=== PATIENT | female | born 1930 | race Caucasian/White ===

== ENCOUNTER 2016-09-15 17:56 | Inpatient (IN) | payer MEDICARE, BC ==
[~2016-09-15] VITALS: Ht 162.6 cm; Wt 83.9 kg
--- NOTE | 2016-09-15 18:00 | NUR ---
PATIENT BIB [facility] C/O SOB SINCE YESTERDAY. PATIENT WAS SEEN AT [facility] YESTERDAY AND WAS GIVEN BACTRIM. PATIENT CONTINUES TO HAVE SOB, PLACED ON 2L O2 VIA NC. SATURATION IS 97%. SAFETY AND COMFORT MEASURES IN PLACE. AWAITING MD ORDERS.
[2016-09-15] MEDS ORDERED: ONDA8TAB6 PO (18:07)
[2016-09-15] MEDS ORDERED: FELO10TA3 PO (18:07)
[2016-09-15] MEDS ORDERED: ALPR0.25 PO (18:07)
[2016-09-15] MEDS ORDERED: GUAI-960 PO (18:07)
[2016-09-15] MEDS ORDERED: SULF1TAB48 PO (18:07)
[2016-09-15] MEDS ORDERED: ALBUTEROL FS 2.5 MG/3 ML VIAL.NEB NEB ONE (18:30)
[2016-09-15] MEDS ORDERED: IV NS 0.9% 1,000 ML BAG IV ONE (18:30)
[2016-09-15] MEDS ORDERED: VANCOMYCIN 1 GM in IV D5W 250 ML IV ONE (18:30)
[2016-09-15 18:33] LABS: ABG BASE EXCESS 3.5 mmol/L; ABG OXYGEN SATURATION 97.4 % (92.0-98.5); ABG PCO2 28.3 mmHg (35.0-45.0); ABG PH 7.559 (7.350-7.450); AaDO2 73.2 mmHg; COHb 0.6 % (0.5-1.5); MetHb 0.5 % (0.0-1.5); O2Hb 96.3 % (94.0-97.0); SITE, ABG Right Radial; VENT MODE, BG NASAL CANNULA
[2016-09-15] MEDS ORDERED: ALBUTEROL FS 2.5 MG/3 ML VIAL.NEB ONE (18:37)
[2016-09-15] MEDS: PIPERACILLIN /TAZOBACTAM 3.375 G in IV D5W 50 ML IV ONE (19:10)
[2016-09-15 19:16] LABS: EOSINOPHILS % (AUTO) 0.6 % (0.0-6.0); HEMATOCRIT 42 % (33-45); HEMOGLOBIN 13.7 g/dL (11.5-14.8); LYMPHOCYTES # (AUTO) 0.5 /CMM (0.8-4.8); LYMPHOCYTES % (AUTO) 28.2 % (20.0-44.0); MEAN CORPUSCULAR HEMOGLOBIN 31 PG (26.0-33.0); MEAN CORPUSCULAR HGB CONC 33 g/dl (31.0-36.0); MEAN CORPUSCULAR VOLUME 96 fL (82-100); MONOCYTES % (AUTO) 1.8 % (2.0-12.0); NEUTROPHILS # (AUTO) 1.3 /CMM (1.8-8.9); NEUTROPHILS % (AUTO) 68.4 % (43.0-81.0); PLATELET COUNT (AUTO) 128 /CMM (150-450); RED BLOOD CELL COUNT(AUTO) 4.39 MIL/uL (4.0-5.2)
--- NOTE | 2016-09-15 19:23 | NUR ---
REPORT GIVEN TO SONA BINGHAM FOR IJEOMA.
--- NOTE | 2016-09-15 19:25 | NUR ---
PT REPORT RECIVED FROM AKBAR RN, PT IN BED ON MONITOR, VSS, WILL CONTINUE TO MONITOR
[2016-09-15 19:26] LABS: CALCIUM, SERUM 7.9 mg/dL (8.5-10.1); CARBON DIOXIDE 26 mmol/L (21-32); CHLORIDE 100 mmol/L (98-107); CREATININE 1.5 mg/dL (0.6-1.3); GLUCOSE 134 mg/dL (74-106); POTASSIUM 3.2 mmol/L (3.5-5.1); SODIUM SERUM 133 mmol/L (136-145); UREA NITROGEN, BLOOD 16 mg/dL (7-18)
[2016-09-15 19:29] LABS: INR 1.12 (0.87-1.13); PROTHROMBIN TIME 11.8 SECS (9.5-12.7); WHITE BLOOD COUNT (AUTO) 1.8 K/uL (4.3-11.0)
[2016-09-15 19:32] LABS: ALANINE AMINOTRANSFERASE 73 U/L (12-78); ALBUMIN 2.4 g/dL (3.4-5.0); ALKALINE PHOSPHATASE 85 U/L (46-116); ASPARTATE AMINOTRANSFERASE 47 U/L (15-37); BILIRUBIN,DIRECT 0.3 mg/dL (0.0-0.2); BILIRUBIN,TOTAL 1.3 mg/dL (0.2-1.0)
[2016-09-15] MEDS ORDERED: POTASSIUM CHLORIDE 20 MEQ TAB.PRT.SR PO ONE ×2 (19:56→20:00)
[2016-09-15 20:08] LABS: BAND % (MANUAL) 4 % (0.0-5.0); EOSINOPHILS % (MANUAL) 1 % (0-4); LYMPHOCYTES % (MANUAL) 20 % (16-48); NEUTROPHILS % (MANUAL) 75 (42-76)
[2016-09-15 20:40] VITALS: BP 112/58
--- NOTE | 2016-09-15 21:00 | NUR ---
RN NOTE; ADMITTED A 86 Y/O F, A, OX3. W/ ANXIETY EPISODES. BREATHING EVENLY. ON O2 AT 2LPM VIA NC KAMRON WELL. HOB ELEVATED TO PREVENT SOB. AYUSH WARM AND DRY. HOWEVER REFUSED A COMPREHENSIVE BODY CHECK AND PICTURE TAKING ON SKIN ISSUES. CARE GIVERS AT THE BED SIDE, MOST MEDICAL INFO WERE OBTAINED FROM THE CAREGIVERS PT UNWILLING TO ANSWER. PT WAS PLACED ON BUSINESS CONSULTANT READING SR RATING 80s. W/ ONGOING IVF BOLUS RUNNING FROM THE ER. IV SITE INTACT . PT DENIED ANY PAIN RO DISCOMFORT AT THIS TIME. NEEDS ATTENDED. BED LOW LOCKED. CALL LIGHT WITHIN REACH. WILL CONT TO MONITOR AND WILL F/U MD'S ORDERS.
[2016-09-16] VITALS: BP 123/64
--- NOTE | 2016-09-16 00:39 | NUR ---
SEEN AND EXAMINED BY DR. VOSS AT THE BED SIDE. PER MD, SHE WILL INPUT THE ADMITTING ORDERS.
[2016-09-16] MEDS: ALBUTEROL FS 2.5 MG/0.5 ML VIAL.NEB NEB SCH ×5 (01:30→15:27)
[2016-09-16] MEDS: methylPREDNISolone SOD SUCC 125 MG/2ML VIAL IV SCH ×3 (01:45→13:57)
--- NOTE | 2016-09-16 02:21 | NUR ---
CALLED RT REGARDING ABG. LEE ANN WILL BE HERE TO DRAW BLOOD.WILL F/U
[2016-09-16 03:14] LABS: ABG BASE EXCESS -3.1 mmol/L; ABG OXYGEN SATURATION 97.2 % (92.0-98.5); ABG PCO2 27.4 mmHg (35.0-45.0); ABG PH 7.464 (7.350-7.450); ABG PO2 98.1 mmHg (75.0-100.0); COHb 0.6 % (0.5-1.5); MetHb 0.8 % (0.0-1.5); O2Hb 95.8 % (94.0-97.0); SITE, ABG Right Radial
[2016-09-16] MEDS ORDERED: IV NS 0.9% 1,000 ML IV PRN (03:30)
--- NOTE | 2016-09-16 06:54 | NUR ---
RN NOTE; PT IN BED AWAKE AND ALERT. REPORTED FEELING MUCH BETTER. BREATHING EVENLY. DENIED SOB. NAD. SUPPLEMENTAL O2 AT 2LPM VIA NC KAMRON WELL.. ON ONGOING IVF HYDRATION. ASSISTED W/ ADLS AND BED SIDE COMMODE. DENIED ANY PAIN OR DISCOMFORT. SR ON TELE MONITOR. CALL LIGHT WITHIN REACH, WILL CONT TO MONITOR AND WILL ENDORSE TO AM SHIFT FOR IJEOMA.
[2016-09-16 07:20] VITALS: BP 116/58
--- NOTE | 2016-09-16 07:30 | NUR ---
RN NOTES RECEIVED PATIENT IN BED SLEEPING, AROUSES EASILY. ALERT AND ORIENTED X 3. RESPIRATIONS EVEN AND UNLABORED. NO ACUTE DISTRESS, NO SOB NOTED. IV SITE INTACT AND PATENT. BED IN LOWEST POSITION, SIDERAILS UP X2. CALL LIGHT WITHIN REACH. WILL CONTINUE TO MONITOR ACCORDINGLY.
[2016-09-16 08:00] VITALS: BP 97/48
[2016-09-16] MEDS ORDERED: GUAIFENESIN/CODEINE 10 ML UDC PO PRN (09:00)
[2016-09-16] MEDS ORDERED: FELODIPINE 2.5 MG TAB.SR.24H PO SCH (09:00)
[2016-09-16] MEDS ORDERED: ALPRAZOLAM 0.25 MG TABLET PO SCH (09:00)
--- NOTE | 2016-09-16 09:20 | NUR ---
SOLU-MEDROL WAS WASTED, TIP WAS BROKEN, WITNESS BY SONA CRYSTAL.
[2016-09-16 10:00] VITALS: BP 97/48
[2016-09-16 12:00] VITALS: BP 101/58
[2016-09-16 16:00] VITALS: BP 120/65
[2016-09-16] MEDS ORDERED: CEFTRIAXONE 1 G in IV D5W 50 ML IV SCH (16:00)
[2016-09-16] MEDS ORDERED: LACTOSE-FREE FOOD 237 ML LIQUID PO SCH (17:00)
--- NOTE | 2016-09-16 17:30 | NUR ---
SPRAY DRIER OPERATOR HELPER NOTES PATIENT SAYING "I WANTED TO GO HOME! ILL IN HERE!", MD AWARE, NO DISCHARGE ORDER WAS MADE. EDUCATE PATIENT BUT STILL INSISTED ON LEAVING. PER DR BAKER, PATIENT CAN GO AGAINST MEDICAL ADVICE. PATIENT LEFT WITH CAREGIVER AGAINST MEDICAL ADVICE.
== END 2016-09-16 18:00 | disposition left against medical advice (07) | DRG 871 ==
LOC: ER 17:57 → TELE 20:33
PROVIDERS: ADMIT Internal Medicine; ATTEND Internal Medicine
DX: A41.9 Sepsis, unspecified organism (principal); N17.0 Acute kidney failure with tubular necrosis; J15.6 Pneumonia due to other Gram-negative bacteria; J96.01 Acute respiratory failure with hypoxia; R53.2 Functional quadriplegia; D61.810 Antineoplastic chemotherapy induced pancytopenia; J15.9 Unspecified bacterial pneumonia; E44.0 Moderate protein-calorie malnutrition; E22.2 Syndrome of inappropriate secretion of antidiuretic hormone; J44.0 Chronic obstructive pulmonary disease with (acute) lower respiratory infection; J44.1 Chronic obstructive pulmonary disease with (acute) exacerbation; E66.9 Obesity, unspecified; E87.6 Hypokalemia; N18.9 Chronic kidney disease, unspecified; Z85.3 Personal history of malignant neoplasm of breast; Z87.891 Personal history of nicotine dependence; I12.9 Hypertensive chronic kidney disease with stage 1 through stage 4 chronic kidney disease, or unspecified chronic kidney disease; K80.20 Calculus of gallbladder without cholecystitis without obstruction; C50.919 Malignant neoplasm of unspecified site of unspecified female breast; Z79.899 Other long term (current) drug therapy; R65.20 Severe sepsis without septic shock; Z68.31 Body mass index [BMI] 31.0-31.9, adult
CPT/HCPCS: 36415; 36600; 71010-TC; 80048-TC; 80076-TC; 83605-TC; 84484-TC; 85025-TC; 85730-TC; 87040-TC; 87081-TC; A4606; J0696; J2543; J2930; J3370; J7030; J7060; Z7610

== ENCOUNTER 2017-06-06 16:40 | Inpatient (IN) | payer MEDICARE, BC ==
[~2017-06-06] VITALS: Ht 162.6 cm; Wt 64.9 kg
[~2017-06-06 16:40] MED LIST: ALPR0.25 PO; FELO10TA3 PO; GUAI-960 PO; ONDA8TAB6 PO; SULF1TAB48 PO
--- NOTE | 2017-06-06 16:45 | NUR ---
HEENA FROM HOME ACCOMPANIED BY CAREGIVER DT SOB STARTED THIS AM. PATIENT IS AWAKE AND ALERT, NOT IN DISTRESS, SATING WELL ON ROOM AIR, PATIENT DENIES CHEST PAIN. SKIN IS WARM TO TOUCH AND NON DIAPHORETIC. PT IS AFEBRILE. VSS
--- NOTE | 2017-06-06 16:54 | NUR ---
EKG IN PROGRESS
[2017-06-06 17:12] LABS: BASOPHILS % (AUTO) 0.6 % (0.0-2.0); EOSINOPHILS % (AUTO) 1.6 % (0.0-6.0); HEMATOCRIT 37 % (33-45); HEMOGLOBIN 12.6 g/dL (11.5-14.8); LYMPHOCYTES # (AUTO) 0.7 /CMM (0.8-4.8); LYMPHOCYTES % (AUTO) 15.5 % (20.0-44.0); MEAN CORPUSCULAR HGB CONC 34 g/dl (31.0-36.0); MEAN CORPUSCULAR VOLUME 97 fL (82-100); MONOCYTES # (AUTO) 0.3 /CMM (0.1-1.30); MONOCYTES % (AUTO) 5.6 % (2.0-12.0); NEUTROPHILS # (AUTO) 3.5 /CMM (1.8-8.9); NEUTROPHILS % (AUTO) 76.7 % (43.0-81.0); PLATELET COUNT (AUTO) 315 /CMM (150-450); RED BLOOD CELL COUNT(AUTO) 3.84 MIL/uL (4.0-5.2); WHITE BLOOD COUNT (AUTO) 4.5 K/uL (4.3-11.0)
[2017-06-06 17:27] LABS: CALCIUM, SERUM 8.6 mg/dL (8.5-10.1); CARBON DIOXIDE 23 mmol/L (21-32); CHLORIDE 106 mmol/L (98-107); CREATININE 0.8 mg/dL (0.6-1.3); GLUCOSE 166 mg/dL (74-106); POTASSIUM 2.9 mmol/L (3.5-5.1); SODIUM SERUM 143 mmol/L (136-145); UREA NITROGEN, BLOOD 11 mg/dL (7-18)
[2017-06-06 17:32] LABS: ALANINE AMINOTRANSFERASE 30 U/L (12-78); ALBUMIN 2.5 g/dL (3.4-5.0); ALKALINE PHOSPHATASE 44 U/L (46-116); ASPARTATE AMINOTRANSFERASE 27 U/L (15-37); BILIRUBIN,DIRECT 0.1 mg/dL (0.0-0.2); BILIRUBIN,TOTAL 0.5 mg/dL (0.2-1.0); TOTAL PROTEIN, SERUM 6.3 g/dL (6.4-8.2)
[2017-06-06 17:35] LABS: INR 0.96 (0.87-1.13)
[2017-06-06] MEDS ORDERED: CEFTRIAXONE 1GM BAG (ER ONLY) 50 ML IV ONE ×2 (17:48→18:00)
[2017-06-06] MEDS ORDERED: POTASSIUM CHLORIDE 20 MEQ TAB.PRT.SR PO ONE ×3 (17:48→23:00)
[2017-06-06 17:49] LABS: TROPONIN I < 0.017 ng/mL (0.00-0.056)
[2017-06-06] MEDS ORDERED: AZITHROMYCIN 500 MG in IV D5W 250 ML IV ONE (18:00)
--- NOTE | 2017-06-06 18:01 | NUR ---
CALLED PHARMACY FOR VEE
--- NOTE | 2017-06-06 18:03 | NUR ---
PAGED EPIC FOR PANEL
[2017-06-06] MEDS ORDERED: AZITHROMYCIN 500 MG VIAL ONE (18:09)
--- NOTE | 2017-06-06 18:12 | NUR ---
PAGED OF [facility] FOR TRANSFER TO [facility] PER PATIENT FAMILY'S REQUEST - DR. HUBBARD SPOKE WITH DR. DURON - AWAITING TRANSFER DETAILS
[2017-06-06] MEDS ORDERED: IV NS 0.9% 1,000 ML BAG IV ONE (19:00)
--- NOTE | 2017-06-06 19:54 | NUR ---
CALLED DR. DURON FOR TRANSFER DETAILS - REFERRED TO NURSE AT [facility] BY DR. DURON FOR DETAILS
--- NOTE | 2017-06-06 19:59 | NUR ---
REFERRED TO [facility] FOR DETAILS
--- NOTE | 2017-06-06 20:15 | NUR ---
CALLED [facility] TRANSF[facility] [place] FOR TRANSFER UPDATE, NO TRANSFER INFORMATION AVAILABLE. FAMILY NOTIFIED OF UPDATE - PER FAMILY, WOULD LIKE TO BE ADMITTED TO [facility]. DR. GARVEY NOTIFIED
--- NOTE | 2017-06-06 20:15 | NUR ---
SPOKE WITH [facility]ERRY OF [facility] AND WAS REFERRED TO [facility] () FOR TRANSFER SET UP AND DETAILS
--- NOTE | 2017-06-06 20:18 | NUR ---
CALLED NURSE SUP FOR TELE BED
--- NOTE | 2017-06-06 22:15 | NUR ---
REPORT GIVEN TO MUSTAPHAI. ROOM 327-2
[2017-06-06 22:20] VITALS: BP 123/78
--- NOTE | 2017-06-06 22:20 | NUR ---
RN NOTES RECEIVED PATIENT FROM ER FOR DX SEPSIS. AO X 3, ABLE TO MAKE NEEDS KNOWN. NO ACUTE DISTRESS NOTED. DENIES ANY PAIN AT THIS TIME. TELE READING SINUS WITH FIRST DEGREE AV BLOCK HR 76. IV SITE PATENT, INTACT; FLUSHED. SKIN ASSESSMENT DONE. SAFETY REMINDERS GIVEN. ORIENTED TO UNIT AND ROOM. ON LOW BED WITH BILATERAL UPPER SIDE RAILS UP. CALL MENDOZA WITHIN EASY REACH. WILL CONTINUE TO MONITOR. 2 CAREGIVERS AT BEDSIDE.
[2017-06-06] MEDS ORDERED: INSULIN REGULAR, HUMAN 100 UNIT/ML 3 ML VIAL SQ PRN (23:00)
[2017-06-06] MEDS ORDERED: ACETAMINOPHEN 325 MG TABLET PO PRN (23:00)
[2017-06-06] MEDS ORDERED: IV NS 0.9% 1,000 ML BAG IV SCH (23:00)
[2017-06-06] MEDS ORDERED: MORPHINE SULFATE INJ 2 MG/ML DISP.SYRIN IV PRN (23:00)
[2017-06-06] MEDS ORDERED: DEXTROSE 50%-WATER 50 ML DISP.SYRIN IV PRN (23:00)
[2017-06-06] MEDS ORDERED: ONDANSETRON HCL/PF 4 MG/2 ML VIAL IVP PRN (23:00)
[2017-06-06 23:10] LABS: PHOSPHORUS 1.6 mg/dL (2.5-4.9)
[2017-06-06] MEDS ORDERED: VANCOMYCIN 1 GM VIAL ONE (23:31)
[2017-06-06] MEDS ORDERED: PIPERACILLIN /TAZOBACTAM 3.375 G VIAL IV ONE (23:32)
[2017-06-06] MEDS: PIPERACILLIN /TAZOBACTAM 3.375 G in IV D5W 50 ML IV SCH (23:57)
[2017-06-06] MEDS ORDERED: VANCOMYCIN 1 GM in IV D5W 250 ML IV SCH (23:59)
[2017-06-07] VITALS: BP 139/92
[2017-06-07] MEDS ORDERED: VANCOMYCIN 1 GM in IV D5W 250 ML IV SCH (00:01)
[2017-06-07] MEDS ORDERED: IV NS 0.9% 1,000 ML IV PRN (00:30)
[2017-06-07 04:00] VITALS: BP 125/61
[2017-06-07] MEDS ORDERED: PIPERACILLIN /TAZOBACTAM 3.375 G VIAL IV ONE (05:52)
[2017-06-07] MEDS: BLOOD SUGAR DIAGNOSTIC 1 EACH STRIP IN SCH ×4 (06:31→21:11)
[2017-06-07] MEDS: PIPERACILLIN /TAZOBACTAM 3.375 G in IV D5W 50 ML IV SCH ×3 (06:31→17:21)
[2017-06-07 06:35] LABS: EOSINOPHILS % (AUTO) 0.5 % (0.0-6.0); HEMATOCRIT 35 % (33-45); HEMOGLOBIN 11.7 g/dL (11.5-14.8); LYMPHOCYTES # (AUTO) 0.6 /CMM (0.8-4.8); LYMPHOCYTES % (AUTO) 11.9 % (20.0-44.0); MEAN CORPUSCULAR HGB CONC 33 g/dl (31.0-36.0); MEAN CORPUSCULAR VOLUME 99 fL (82-100); MONOCYTES # (AUTO) 0.2 /CMM (0.1-1.30); MONOCYTES % (AUTO) 4.5 % (2.0-12.0); NEUTROPHILS % (AUTO) 83.1 % (43.0-81.0); PLATELET COUNT (AUTO) 223 /CMM (150-450); RDW COEFFICIENT OF VARIATION 19.1 (11.5-15.0); RED BLOOD CELL COUNT(AUTO) 3.56 MIL/uL (4.0-5.2); WHITE BLOOD COUNT (AUTO) 4.9 K/uL (4.3-11.0)
--- NOTE | 2017-06-07 06:55 | NUR ---
RN NOTES PATIENT ASLEEP, EASILY AROUSABLE. RESPIRATIONS EVEN. NO SIGNS OF PAIN NOTED. NO SYMPTOMS OF HYPER/HYPOGLYCEMIA. DUE MEDS GIVEN WITH NO ASE NOTED. NEEDS ATTENDED. SAFETY PRECAUTIONS AND COMFORT MEASURES IN PLACE. WILL GIVE REPORT TO DAY SHIFT FOR CONTINUITY OF CARE.
[2017-06-07 06:57] LABS: CALCIUM, SERUM 7.4 mg/dL (8.5-10.1); CARBON DIOXIDE 22 mmol/L (21-32); CHLORIDE 115 mmol/L (98-107); CREATININE 0.5 mg/dL (0.6-1.3); GLUCOSE 113 mg/dL (74-106); MAGNESIUM 1.8 mg/dL (1.8-2.4); POTASSIUM 4.4 mmol/L (3.5-5.1); SODIUM SERUM 149 mmol/L (136-145); UREA NITROGEN, BLOOD 7 mg/dL (7-18)
--- NOTE | 2017-06-07 07:15 | NUR ---
RN OPENING NOTES RECEIVED PATIENT IN BED ALERT ORIENTED X4. NO ACUTE DISTRESS NOTED. BREATHING UNLABORED. IV ACCESS PATENT AND INTACT. SAFETY MEASURES IN PLACE. CALL LIGHT WITHIN REACH.
[2017-06-07 08:00] VITALS: BP 125/79
[2017-06-07] MEDS ORDERED: FENTANYL PF 100MCG/2ML AMPUL IV PRN (08:30)
[2017-06-07] MEDS ORDERED: FELODIPINE 2.5 MG TAB.SR.24H PO SCH (09:00)
--- NOTE | 2017-06-07 09:30 | NUR ---
MS RN NOTES SEEN AND EVALUATED BY DR DRISS CASTRO TRAVEL DIRECTOR STUDENT, ALSO MADE AWARE THAT PATIENT NO LONGER TAKING PLENDIL, SAID MAY HOLD DOSE.
[2017-06-07] MEDS: PANTOPRAZOLE 40 MG VIAL IV SCH (09:48)
[2017-06-07] MEDS ORDERED: FEE PK DOSING 1 MIN EA MC ONE (10:57)
--- NOTE | 2017-06-07 10:59 | NUR ---
MS RN NOTES SEEN AND EVALUATED BY DR MAURO WITH NEW ORDERS MADE. NOTED AND CARRIED OUT.
[2017-06-07] MEDS ORDERED: K PHOS NEUTRAL 250 MG TABLET PO ONE (12:00)
[2017-06-07] MEDS: IV 1/2NS 1000 ML 1,000 ML IV PRN (14:51)
[2017-06-07 16:00] VITALS: BP 140/75
--- NOTE | 2017-06-07 18:00 | NUR ---
MS RN NOTES PATIENT IN BED ALERT ORIENTED X3. CAREGIVER AT BEDSIDE. NO ACUTE DISTRESS NOTED. BREATHING UNLABORED. NO SOB NOTED. IV ACCESS PATENT AND INTACT, NO REDNESS OR SWELLING NOTED. DUE MEDICATIONS GIVEN, NO ASE NOTED. NEEDS ATTENDED AND ANTICIPATED. SAFETY MEASURES IN PLACE. CALL LIGHT WITHIN REACH. WILL CONTINUE TO MONITOR ACCORDINGLY. WILL ENDORSE TO NIGHT NURSE FOR CONTINUITY OF CARE.
--- NOTE | 2017-06-07 19:00 | NUR ---
RN OPENING NOTES PT AWAKE AND RESTING IN BED. CAREGIVER AT BEDSIDE. NO COMPLAINTS OF PAIN, SOB, OR DISTRESS AT THIS TIME. PT HAS A RIGHT FOREARM #20 RUNNING D5 1/2NS @100ML/HR, PT TOLERATING WELL. PT IS AWAITING TRANSFER TO [facility]. ALL SAFETY PRECAUTIONS IN PLACE. BED IN LOW, LOCKED POSITION, X2 SIDE RAILS UP. CALL LIGHT WITHIN REACH. WILL CONTINUE TO MONITOR.
[2017-06-07 20:00] VITALS: BP 110/60
[2017-06-07] MEDS ORDERED: VANCOMYCIN 1.25 GM in IV D5W 500 ML IV SCH (21:00)
[2017-06-08] MEDS: PIPERACILLIN /TAZOBACTAM 3.375 G in IV D5W 50 ML IV SCH ×3 (00:29→11:20)
--- NOTE | 2017-06-08 06:51 | NUR ---
RN CLOSING NOTES PT AWAKE AND RESTING IN BED. CAREGIVER AT BEDSIDE. NO COMPLAINTS OF PAIN, SOB, OR DISTRESS OVERNIGHT. PT HAS A RIGHT FOREARM #20 RUNNING D5 1/2NS @100ML/HR, PT TOLERATING WELL. PT IS AWAITING TRANSFER TO [facility]. ALL SAFETY PRECAUTIONS IN PLACE. BED IN LOW, LOCKED POSITION, X2 SIDE RAILS UP. CALL LIGHT WITHIN REACH. WILL ENDORSE TO DAY SHIFT NURSE FOR CONTINUITY OF CARE.
--- NOTE | 2017-06-08 07:15 | NUR ---
RN OPENING NOTES RECEIVED PATIENT IN BED, ALERT ORIENTED X . CAREGIVER AT BEDSIDE. NO ACUTE DISTRESS NOTED. BREATHING UNLABORED. NO SOB NOTED. IV ACCESS PATENT AND INTACT, NO REDNESS OR SWELLING NOTED. SAFETY MEASURES IN PLACE. CALL LIGHT WITHIN REACH. WANDER CONTINUE TO MONITOR ACCORDINGLY.
[2017-06-08] MEDS: BLOOD SUGAR DIAGNOSTIC 1 EACH STRIP IN SCH ×2 (07:22→12:15)
[2017-06-08] MEDS: PANTOPRAZOLE 40 MG VIAL IV SCH (08:34)
[2017-06-08 09:08] VITALS: BP 142/65
[2017-06-08] MEDS ORDERED: MEGE40TA PO (09:10)
[2017-06-08] MEDS ORDERED: LEVO125T8 PO (09:10)
[2017-06-08] MEDS ORDERED: ONDA8TAB6 PO (09:10)
[2017-06-08] MEDS ORDERED: DEXA1TAB PO (09:10)
[2017-06-08] MEDS: IV 1/2NS 1000 ML 1,000 ML IV PRN (09:58)
--- NOTE | 2017-06-08 11:35 | NUR ---
MS RN NOTES SEEN AND EVALUATED BY DR JOHNSON WITH NEW ORDERS MADE. NOTED AND CARRIED OUT. MD MADE AWARE OF HOME MEDICATIONS NEEDS TO BE RECONCILED.
--- NOTE | 2017-06-08 14:30 | NUR ---
MS DISCHARGE NOTES PATIENT DISCHARGED TO [facility] WITH STABLE VITAL SIGNS VIA AMBULANCE IN A GURNEY ACCOMPANIED BY 2 EMT PERSONNEL AND CAREGIVER. DISCHARGE INSTRUCTIONS GIVEN TO THE PATIENT INCLUDING HOME MEDICATIONS AND TRANSFER DOCUMENTS. REPORT GIVEN TO NURSE BRAY OF [facility]. ALL BELONGINGS ACCOUNTED FOR. CLAUDIO KUMAR AND DARYL AWARE OF TRANSFER.
== END 2017-06-08 14:25 | disposition other institution (70) | DRG 871 ==
LOC: ER 16:42 → TELE 20:29 → MED 06-07 09:11
PROVIDERS: ADMIT Registered Nurse; ATTEND Registered Nurse
DX: A41.9 Sepsis, unspecified organism (principal); J96.01 Acute respiratory failure with hypoxia; J15.9 Unspecified bacterial pneumonia; E44.0 Moderate protein-calorie malnutrition; C78.00 Secondary malignant neoplasm of unspecified lung; E87.0 Hyperosmolality and hypernatremia; D89.9 Disorder involving the immune mechanism, unspecified; E11.65 Type 2 diabetes mellitus with hyperglycemia; E66.01 Morbid (severe) obesity due to excess calories; E87.2 Acidosis; C50.919 Malignant neoplasm of unspecified site of unspecified female breast; Z91.041 Radiographic dye allergy status; E83.39 Other disorders of phosphorus metabolism; E87.6 Hypokalemia; I10 Essential (primary) hypertension; F41.9 Anxiety disorder, unspecified; Z87.891 Personal history of nicotine dependence; Z90.2 Acquired absence of lung [part of]; Z79.899 Other long term (current) drug therapy; Z90.12 Acquired absence of left breast and nipple; Z92.21 Personal history of antineoplastic chemotherapy
CPT/HCPCS: 36415; 71045-TC; 80048-TC; 80076-TC; 82962-TC; 83605-TC; 83735-TC; 84100-TC; 84484-TC; 85025-TC; 85378-TC; 85730-TC; 87040-TC; 87081-TC; A4606; C9113; J0456; J0696; J1815; J2543; J3370; J3490; J7030; J7040; J7060; Z7610

== ENCOUNTER 2017-10-30 00:43 | Inpatient (IN) | payer MEDICARE, BC ==
[~2017-10-30] VITALS: Ht 162.6 cm; Wt 66.7 kg
[~2017-10-30 00:43] MED LIST changes: -ALPR0.25 PO; +DEXA1TAB PO; -FELO10TA3 PO; -GUAI-960 PO; +LEVO125T8 PO; +MEGE40TA PO; -SULF1TAB48 PO
--- NOTE | 2017-10-30 00:43 | NUR ---
PT BBRA 102 FROM HOME C/C SOB [id number] SALES PROJECT ENGINEER W/ BILATERAL LUNG WHEEZING. PT AAOX4. PT'S CAREGIVER STATES SHE HAD O2 OF 79% ON ROOM AIR AT HOME. PT RESPIRATIONS ARE LABORED. PT PLACED ON OXYGEN AND MONITOR.
--- NOTE | 2017-10-30 00:50 | NUR ---
RT AT BEDSIDE
[2017-10-30] MEDS ORDERED: ALBUTEROL FS 2.5 MG/0.5 ML VIAL.NEB ONE (00:57)
[2017-10-30] MEDS ORDERED: IPRATROPIUM NEB FS 0.5 MG/2.5 ML AMPUL.NEB ONE (00:57)
[2017-10-30] MEDS ORDERED: IPRATROPIUM NEB FS 0.5 MG/2.5 ML AMPUL.NEB NEB ONE (01:00)
[2017-10-30] MEDS ORDERED: ALBUTEROL FS 2.5 MG/0.5 ML VIAL.NEB NEB ONE (01:00)
--- NOTE | 2017-10-30 01:10 | NUR ---
GYROSCOPE REPAIRER AT BEDSIDE FOR LABS
--- NOTE | 2017-10-30 01:34 | NUR ---
RADIOLOGIST AT BEDSIDE
[2017-10-30 01:45] LABS: BASOPHILS # (AUTO) 0.1 /CMM (0.0-0.2); BASOPHILS % (AUTO) 4.6 % (0.0-2.0); HEMATOCRIT 36 % (33-45); HEMOGLOBIN 11.4 g/dL (11.5-14.8); LYMPHOCYTES # (AUTO) 0.9 /CMM (0.8-4.8); MEAN CORPUSCULAR HEMOGLOBIN 30 PG (26.0-33.0); MEAN CORPUSCULAR HGB CONC 32 g/dl (31.0-36.0); MEAN CORPUSCULAR VOLUME 94 fL (82-100); MONOCYTES # (AUTO) 0.4 /CMM (0.1-1.30); MONOCYTES % (AUTO) 13.7 % (2.0-12.0); NEUTROPHILS # (AUTO) 1.6 /CMM (1.8-8.9); NEUTROPHILS % (AUTO) 51.7 % (43.0-81.0); PLATELET COUNT (AUTO) 262 /CMM (150-450); RDW COEFFICIENT OF VARIATION 19.3 (11.5-15.0); RED BLOOD CELL COUNT(AUTO) 3.79 MIL/uL (4.0-5.2); WHITE BLOOD COUNT (AUTO) 3.2 K/uL (4.3-11.0)
--- NOTE | 2017-10-30 01:52 | NUR ---
URINE COLLECTED. CALLED LAB FOR MINERAL WOOL INSULATION SUPERVISOR
[2017-10-30 01:59] LABS: CALCIUM, SERUM 8.2 mg/dL (8.5-10.1); CARBON DIOXIDE 21 mmol/L (21-32); CHLORIDE 104 mmol/L (98-107); CREATININE 0.9 mg/dL (0.6-1.3); GLUCOSE 102 mg/dL (74-106); POTASSIUM 4.1 mmol/L (3.5-5.1); SODIUM SERUM 138 mmol/L (136-145); UREA NITROGEN, BLOOD 13 mg/dL (7-18)
[2017-10-30 02:08] LABS: ALANINE AMINOTRANSFERASE 18 U/L (12-78); ALBUMIN 2.1 g/dL (3.4-5.0); ALKALINE PHOSPHATASE 68 U/L (46-116); ASPARTATE AMINOTRANSFERASE 38 U/L (15-37); B-TYPE NATRIURETIC PEPTIDE 5120 PG/ML (0-125); BILIRUBIN,DIRECT 0.1 mg/dL (0.0-0.2); BILIRUBIN,TOTAL 0.3 mg/dL (0.2-1.0); TOTAL PROTEIN, SERUM 6.2 g/dL (6.4-8.2); TROPONIN I 0.269 ng/mL (0.00-0.056)
[2017-10-30] MEDS ORDERED: CEFTRIAXONE 1 G in IV D5W 50 ML IV ONE (02:30)
[2017-10-30] MEDS ORDERED: ASPIRIN 325 MG TABLET PO ONE (02:30)
[2017-10-30] MEDS ORDERED: AZITHROMYCIN 500 MG in IV D5W 250 ML IV ONE (02:30)
[2017-10-30] MEDS ORDERED: CEFTRIAXONE 1 G VIAL ONE (02:35)
[2017-10-30] MEDS ORDERED: AZITHROMYCIN 500 MG VIAL ONE (02:36)
[2017-10-30] MEDS ORDERED: ASPIRIN 325 MG TABLET ONE (02:37)
--- NOTE | 2017-10-30 02:55 | NUR ---
REPORT GIVEN TO SONA EVANGELISTA FOR BED 326
[2017-10-30] MEDS ORDERED: ASPIRIN 300 MG/SUPP.RECT RC ONE ×2 (02:59→03:00)
[2017-10-30] MEDS ORDERED: ACETAMINOPHEN 325 MG TABLET PO PRN (03:00)
[2017-10-30] MEDS ORDERED: Z GUARD REMEDY 2 OZ OINT TP PRN (03:00)
[2017-10-30] MEDS ORDERED: MAG HYDROX/AL HYDROX/SIMETH 30 ML UDC PO PRN (03:00)
[2017-10-30] MEDS ORDERED: ONDANSETRON HCL/PF 4 MG/2 ML VIAL IVP PRN (03:00)
[2017-10-30] MEDS ORDERED: HYDROCODONE/APAP 5/325MG 1 EACH TABLET PO PRN (03:00)
[2017-10-30] MEDS ORDERED: MAGNESIUM HYDROXIDE 30 ML UDC PO PRN (03:00)
[2017-10-30] MEDS ORDERED: ZOLPIDEM TARTRATE 5 MG TABLET PO PRN (03:00)
--- NOTE | 2017-10-30 03:00 | NUR ---
PT BROUGHT FOR VQ SCAN
[2017-10-30 03:22] LABS: APPEARANCE,URINE CLEAR (CLEAR); BILIRUBIN,URINE NEGATIVE (NEGATIVE); BLOOD, URINE 1+ Ery/uL (NEGATIVE); COLOR,URINE YELLOW (YELLOW); KETONES,URINE TRACE (NEGATIVE); LEUKOCYTE ESTERASE ,URINE 2+ (NEGATIVE); NITRITE, URINE POSITIVE (NEGATIVE); PROTEIN,URINE TRACE mg/dl (NEGATIVE); UGLUCOSE NEGATIVE (NEGATIVE); UROBILINOGEN,URINE 0.2 EU/dL (0.2)
[2017-10-30 03:28] LABS: INR 0.96 (0.87-1.13)
[2017-10-30 03:50] LABS: BACTERIA,URINE Many /HPF (None Seen); WBC,URINE TOO NUMEROUS TO COUN /HPF (0-3)
--- NOTE | 2017-10-30 04:45 | NUR ---
CUSTOM SHOE DESIGNER AND MAKERREPAIRER VENEER SHEET NOTES RECEIVED PATIENT FROM ER VIA GURNEY TO ROOM 326-2, ACCOMPANIED BY STAFF WITH DX OF PNEUMONIA. PATIENT IS A & O X 1 WITH FORGETFULNESS. NO S/S OF PAIN NOTED. RESP EVEN & NON LABORED. ON TELE MONITORING WITH SR 98. ON O2 @ 2 LMP VIA NC, SATTING @ 96%. NOTED WITH DERRICK LUNG WHEEZING UPON AUSCULTATION. BODY ASSESSMENT DONE, PHOTOS TAKEN, PLACED IN THE CHART. ALL BELONGINGS ACCOUNTED FOR & DOCUMENTED BY UI ENGINEER. IV ACCESS TO LEFT HAND, INTACT PATENT, SL. ON CARDIAC/PUREE DIET ORDERED. PT NEEDS MAXIMUM ASSISTANCE WITH ALL ADL'S. JACQUI, FIELD RETURN REPAIRER @ BED SIDE & STATED THAT SHE HAS DPOA. ASKED FIELD RETURN REPAIRER TO BRING A COPY OF DPOA FOR [facility] RECORDS, VERBALIZED UNDERSTANDING. ALL NEW MEDICINE ORDERS PLACED IN BY , NOTED & CARRIED OUT. SAFETY MEASURES IN PLACE, CALL LIGHT WITHIN REACH. ALL NEEDS MET. WILL CONTINUE TO MONITOR CLOSELY.
--- NOTE | 2017-10-30 04:53 | NUR ---
PT TRANSFERRED TO 326 PER ACLS PROTOCOL
[2017-10-30 05:00] VITALS: BP 117/66
[2017-10-30 05:49] VITALS: BP 117/66
--- NOTE | 2017-10-30 07:14 | NUR ---
COMPUTING CONSULTANT CLOSING NOTES PT IS RESTING IN BED, A & O X 1 WITH FORGETFULNESS. NO S/S OF PAIN NOTED. RESP EVEN & NON LABORED. CALM/RELAXED @ THIS TIME. ON TELE MONITORING WITH SR 86. ON O2 @ 2 LMP VIA NC, SATTING @ 95%. IN SEMI HIDALGO POSITION. NO ACUTE IJEOMA NOTED. IV ACCESS TO LEFT HAND, INTACT PATENT, SL. ON CARDIAC/PUREE DIET ORDERED. PT NEEDS MAXIMUM ASSISTANCE WITH ALL ADL'S. ALL NEEDS MET. SAFETY MEASURES IN PLACE, CALL LIGHT WITHIN REACH. ALL NEEDS MET. WILL ENDORSE TO AM RN FOR CONTINUITY OF CARE.
--- NOTE | 2017-10-30 07:30 | NUR ---
received pt. alert and oriented x1.pleasant.groggy.side rails up continually.vs stable.
[2017-10-30 08:00] VITALS: BP 119/93
[2017-10-30] MEDS: FUROSEMIDE 40 MG/4 ML VIAL IV SCH (09:58)
[2017-10-30] MEDS: LEVOTHYROXINE SODIUM 125 MCG TABLET PO SCH (09:58)
[2017-10-30] MEDS: DEXAMETHASONE 1 MG TABLET PO SCH (09:58)
[2017-10-30] MEDS: MEGESTROL ACETATE 40 MG TABLET PO SCH ×5 (09:58→21:09)
--- NOTE | 2017-10-30 11:30 | NUR ---
brooke diversified crops farmer in with plans to transfer to [facility] [place].
[2017-10-30 12:00] VITALS: BP 125/76
--- NOTE | 2017-10-30 15:30 | NUR ---
dr. gaines in to see pt. nasal swab for rapid influenza and sputum culture sent.caregivers present.paperwork done for transfer. poa papers brought in by caregivers.
[2017-10-30 16:00] VITALS: BP 124/70
--- NOTE | 2017-10-30 18:30 | NUR ---
[place] [facility] [place] at bedside all day.
--- NOTE | 2017-10-30 19:20 | NUR ---
RN OPENING NOTES RECEIVED PT IN BED, ALERT TO SELF, IN NO ACUTE DISTRESS, NO SOB NOTED, NO FACIAL GRIMACING., ALL PATIENT'S NEEDS ATTENDED TO AT THIS TIME. SAFETY PRECAUTIONS IN PLACE. CALL LIGHT PLACED WITHIN EASY REACH. ON TELE MONITORING WITH ST 112 BPM. WILL CONTINUE TO MONITOR PT.
[2017-10-30 20:00] VITALS: BP 134/74
[2017-10-30] MEDS ORDERED: CEFTRIAXONE 1 G in IV D5W 50 ML IV SCH (21:00)
[2017-10-30] MEDS: AZITHROMYCIN 250 MG TABLET PO SCH (21:09)
[2017-10-30] MEDS ORDERED: ATORVASTATIN 10 MG TABLET PO SCH (22:00)
[2017-10-31] VITALS: BP 110/65
--- NOTE | 2017-10-31 06:37 | NUR ---
RN CLOSING NOTES PATIENT IN BED, ASLEEP BUT EASILY AROUSABLE. PT IS ALERT TO SELF, TURNED AND REPOSITIONED Q2 HOURS, DRESSING ON BILATERAL ARMS DONE ORDERED. ALL PATIENT'S NEEDS ATTENDED TO THROUGHOUT THE SHIFT. KEPT PT SAFE AND DRY, CLEAN AND COMFORTABLE. PLACED BED IN LOW POSITION AND LOCKED IN PLACE. CALL LIGHT WITHIN EASY REACH. ON TELE MONITORING SR/ST 60s-112 BPM. PT WAITING FOR BED IN [facility]. WILL ENDORSE TO AM SHIFT NURSE FOR CONTINUITY OF CARE.
[2017-10-31 08:00] VITALS: BP 107/65
--- NOTE | 2017-10-31 08:00 | NUR ---
RN NOTES RECEIVED PATIENT IN THE BED TELE ON TELE MONITOR, SR-91, PATIENT TOTAL CARE, SLEEPING . PATIENT AROUSE OPEN EYES WHEN CALLED NAME OR TOUCHED. PATIENT ABLE TO UNSWEAR QUESTIONS. IV ACCESS LEFT HAND INTACT. PATIENT HAS EDEMA BILATERAL UPPER AND LOWER EXTREMITIES. ASSIST TURN AND REPOSTION Q 2 HR. V/S TAKEN STABLE, SCHEDULED MEDICATION CRUSHED AND ADMINISTERED WITH APPLE SAUCE. PATIENT INCONTINENT, APPLIED Z-GUARD. NEEDS ATTENDED AND ANTICIPATED, CALL LIGHT WITHIN TO REACH. CARE GIVERS NEXT TO THE BED. CONTINUED MONITORING FOR SAFETY ALL THE TIME.
[2017-10-31] MEDS: LEVOTHYROXINE SODIUM 125 MCG TABLET PO SCH (08:40)
[2017-10-31] MEDS: MEGESTROL ACETATE 40 MG TABLET PO SCH (08:40)
[2017-10-31] MEDS: DEXAMETHASONE 1 MG TABLET PO SCH (08:40)
[2017-10-31] MEDS: AZITHROMYCIN 250 MG TABLET PO SCH (08:40)
[2017-10-31] MEDS: FUROSEMIDE 40 MG/4 ML VIAL IV SCH (08:41)
[2017-10-31 09:45] LABS: BASOPHILS # (AUTO) 0.1 /CMM (0.0-0.2); BASOPHILS % (AUTO) 2.5 % (0.0-2.0); EOSINOPHILS % (AUTO) 0.7 % (0.0-6.0); HEMATOCRIT 33 % (33-45); HEMOGLOBIN 10.4 g/dL (11.5-14.8); LYMPHOCYTES # (AUTO) 0.7 /CMM (0.8-4.8); LYMPHOCYTES % (AUTO) 22.3 % (20.0-44.0); MEAN CORPUSCULAR HEMOGLOBIN 30 PG (26.0-33.0); MEAN CORPUSCULAR HGB CONC 32 g/dl (31.0-36.0); MEAN CORPUSCULAR VOLUME 94 fL (82-100); MONOCYTES # (AUTO) 0.5 /CMM (0.1-1.30); MONOCYTES % (AUTO) 14.9 % (2.0-12.0); NEUTROPHILS # (AUTO) 1.8 /CMM (1.8-8.9); NEUTROPHILS % (AUTO) 59.6 % (43.0-81.0); PLATELET COUNT (AUTO) 339 /CMM (150-450); RDW COEFFICIENT OF VARIATION 18.6 (11.5-15.0); RED BLOOD CELL COUNT(AUTO) 3.51 MIL/uL (4.0-5.2); WHITE BLOOD COUNT (AUTO) 3.1 K/uL (4.3-11.0)
[2017-10-31 09:57] LABS: CALCIUM, SERUM 8.5 mg/dL (8.5-10.1); CARBON DIOXIDE 27 mmol/L (21-32); CHLORIDE 108 mmol/L (98-107); CREATININE 0.9 mg/dL (0.6-1.3); GLUCOSE 89 mg/dL (74-106); MAGNESIUM 2.1 mg/dL (1.8-2.4); PHOSPHORUS 2.8 mg/dL (2.5-4.9); POTASSIUM 3.7 mmol/L (3.5-5.1); SODIUM SERUM 144 mmol/L (136-145); UREA NITROGEN, BLOOD 13 mg/dL (7-18)
[2017-10-31 10:15] LABS: CHOLESTEROL 211 mg/dL (<200); FERRITIN 366 ng/mL (8-388); HDL CHOLESTEROL 48 mg/dL (40-60); LDL 134 mg/dL (0-99); TRIGLYCERIDES 121 mg/dL (30-150)
[2017-10-31 10:44] LABS: IRON, SERUM 52 ug/dl (50-175); TOTAL IRON BINDING CAPACITY 185 ug/dl (250-450)
--- NOTE | 2017-10-31 11:55 | NUR ---
discharge notes PATIENT DISCHARGE AT THIS TIME GOING [facility] AT THIS TIME FOR BRAIN CA TX. PATIENT A/O X1/2, ON O2 2LNC, NO COMPLAINING OF PAIN, NO SOB AT THIS TIME. PATIENT TOTAL CARE. MED RECONCILIATION AND DISCHARGE ORDER REVIEWED AND EXPLAINED TO. REPORT GIVEN [facility] NURSE RN NAME BONYRASHAWNMarioANTONIA. RN VERBALIZED UNDERSTANDING. PATIENT HAS NO BELONGING. PATIENT UNABLE TO SIGN PAPERWORK, CAREGIVERS NEXT TO THE BED. PATIENT WORK TICKET DISTRIBUTOR BY AMBULANCE.
== END 2017-10-31 12:11 | disposition other institution (70) | DRG 177 ==
LOC: ER 00:44 → TELE 02:47
PROVIDERS: ADMIT Family Medicine; ATTEND Registered Nurse
DX: J69.0 Pneumonitis due to inhalation of food and vomit (principal); I50.33 Acute on chronic diastolic (congestive) heart failure; I26.99 Other pulmonary embolism without acute cor pulmonale; I21.A1 Myocardial infarction type 2; G93.40 Encephalopathy, unspecified; C34.90 Malignant neoplasm of unspecified part of unspecified bronchus or lung; C79.51 Secondary malignant neoplasm of bone; C79.31 Secondary malignant neoplasm of brain; N39.0 Urinary tract infection, site not specified; D84.9 Immunodeficiency, unspecified; E44.0 Moderate protein-calorie malnutrition; J90 Pleural effusion, not elsewhere classified; Z91.041 Radiographic dye allergy status; C50.919 Malignant neoplasm of unspecified site of unspecified female breast; Z79.899 Other long term (current) drug therapy; I11.0 Hypertensive heart disease with heart failure; B96.89 Other specified bacterial agents as the cause of diseases classified elsewhere; E03.9 Hypothyroidism, unspecified; F03.90 Unspecified dementia, unspecified severity, without behavioral disturbance, psychotic disturbance, mood disturbance, and anxiety; F41.9 Anxiety disorder, unspecified; Z90.10 Acquired absence of unspecified breast and nipple; Z90.2 Acquired absence of lung [part of]; S41.112A Laceration without foreign body of left upper arm, initial encounter; S41.111A Laceration without foreign body of right upper arm, initial encounter; X58.XXXA Exposure to other specified factors, initial encounter; Y92.9 Unspecified place or not applicable; Y99.9 Unspecified external cause status; R09.02 Hypoxemia; Z87.891 Personal history of nicotine dependence
CPT/HCPCS: 36415; 71045-TC; 78582; 80048-TC; 80061-TC; 80076-TC; 81000-TC; 82728-TC; 83540-TC; 83605-TC; 83735-TC; 83880; 84100-TC; 84484-TC; 85025-TC; 85730-TC; 86300; 87040-TC; 87070-TC; 87081-TC; 87086-TC; 87186-TC; 87400; 93307-TC; A4606; A6402; A9540; A9567; J0456; J0696; J1940; J7030; J7060; J8540; Z7610